=== PATIENT | male | born 1995 | race Caucasian/White ===

== ENCOUNTER 2020-11-10 15:08 | Inpatient (IN) | payer MEDICAID, OTHER ==
[2020-11-10] MEDS ORDERED: LORazepam 2 MG/ML INJ IV STA ×2 (15:40→17:26)
--- NOTE | 2020-11-10 15:49 | ED ---
Psych HPI - General Chief Complaint: Psychiatric Symptoms Stated Complaint: Mental Health Time Seen by Provider: 11/10/20 15:27 Source: patient Mode of arrival: ambulatory - History of Present Illness Initial Comments: Physical 25-year-old male with no known past medical history who presents or urgency department for concerns for change in mental status. Families noted is been more hyperactive and hyperverbal recently. They reported he states he does not have a history of any mental illness. No known history of any drug use except for marijuana. The patient is extremely hyperverbal and tangential and difficult to get a history from. He denies any physical complaints. No suicidal or homicidal ideation. No visual or auditory hallucinations. He denies any drug use. He does state that he drinks around 60 gallons water week and is constantly thirsty. Otherwise he denies any other complaints. No fevers chills, cough, shortness breath, nausea, vomiting, or diarrhea. No other complaints. - Related Data Home Medications Medication Instructions Recorded Confirmed No Known Home Medications 11/10/20 11/10/20 Allergies Allergy/AdvReac Type Severity Reaction Status Date / Time No Known Allergies Allergy Verified 11/10/20 16:43 Review of Systems ROS Statement: Those systems with pertinent positive or pertinent negative responses have been documented in the HPI. ROS Other: All systems not noted in ROS Statement are negative. Past Medical History Past Medical History: No Reported History History of Any Multi-Drug Resistant Organisms: None Reported Past Surgical History: Orthopedic Surgery Additional Past Surgical History / Comment(s): wisdom teeth Past Psychological History: Anxiety Smoking Status: Current some day smoker Past Alcohol Use History: Occasional Past Drug Use History: Marijuana General Exam - General Exam Comments Initial Comments: Constitutional: Awake alert Appears comfortable Head: Normocephalic atraumatic Eyes: no conjunctival injection No scleral icterus EOMI Pupils 4mm Neck: No JVD Supple Heart: Tachycardic but regular normal S1-S2 no murmurs Lungs: Clear to auscultation bilaterally No wheezing No rales Abdomen: Soft nondistended nontender Extremities: Non edematous DP pulses intact Radial pulses intact Neuro: A&Ox3 No focal neurologic deficits Psych: Hyperverbal, tangential, anxious appearing Limitations: no limitations Course Vital Signs 11/10/20 15:15 Temperature 98.5 F Pulse Rate 118 H Respiratory 17 Rate Blood Pressure 129/84 O2 Sat by Pulse 97 Oximetry - Reevaluation(s) Reevaluation #1: EKG showing normal sinus rhythm with a rate of 70. There is no abnormal ST segment changes or T-wave inversion. QTC is 384. Other intervals normal. No ectopy. 11/10/20 15:51 Medical Decision Making - Medical Decision Making Is a 25-year-old male who presents emergency department for hyperactivity and hyperverbal. Patient appear to be manic on examination. He did admit to drinking quite a bit of water some blood work was checked. No hyponatremia. The rest of his blood work was unremarkable. UDS positive for marijuana and tricyclics which I suspect is a cross contaminant however unknown exactly what e lse he could be taking. Patient voluntarily signed in to be treated as inpatient psychiatry. - Lab Data Result diagrams: 11/10/20 15:54 11/10/20 15:54 Lab Results 11/10/20 11/10/20 11/10/20 Range/Units 15:49 15:54 15:54 WBC 7.6 (3.8-10.6) k/uL RBC 5.54 (4.30-5.90) m/uL Hgb 16.3 (13.0-17.5) gm/dL Hct 47.1 (39.0-53.0) % MCV 85.1 (80.0-100.0) fL MCH 29.4 (25.0-35.0) pg MCHC 34.5 (31.0-37.0) g/dL RDW 12.3 (11.5-15.5) % Plt Count 267 (150-450) k/uL MPV 6.6 Neutrophils % 69 % Lymphocytes % 21 % Monocytes % 6 % Eosinophils % 2 % Basophils % 1 % Neutrophils # 5.3 (1.3-7.7) k/uL Lymphocytes # 1.6 (1.0-4.8) k/uL Monocytes # 0.4 (0-1.0) k/uL Eosinophils # 0.1 (0-0.7) k/uL Basophils # 0.1 (0-0.2) k/uL Sodium 143 (137-145) mmol/L Potassium 4.4 (3.5-5.1) mmol/L Chloride 106 (98-107) mmol/L Carbon Dioxide 28 (22-30) mmol/L Anion Gap 9 mmol/L BUN 10 (9-20) mg/dL Creatinine 0.89 (0.66-1.25) mg/dL Est GFR (CKD-EPI)AfAm >90 (>60 ml/min/1.73 sqM) Est GFR (CKD-EPI)NonAf >90 (>60 ml/min/1.73 sqM) Glucose 112 H (74-99) mg/dL Calcium 10.1 (8.4-10.2) mg/dL Urine Color Yellow Urine Appearance Clear (Clear) Urine pH 7.0 (5.0-8.0) Ur Specific [place] 1.015 (1.001-1.035) Urine Protein Trace H (Negative) Urine Glucose (UA) Negative (Negative) Urine Ketones Trace H (Negative) Urine Blood Negative (Negative) Urine Nitrite Negative (Negative) Urine Bilirubin Negative (Negative) Urine Urobilinogen 4.0 (<2.0) mg/dL Ur Leukocyte Esterase Negative (Negative) Salicylates <1.0 mg/dL Urine Opiates Screen Not Detected (NotDetected) Ur Oxycodone Screen Not Detected (NotDetected) Urine Methadone Screen Not Detected (NotDetected) Ur Propoxyphene Screen Not Detected (NotDetected) Acetaminophen <10.0 ug/mL Ur Barbiturates Screen Not Detected (NotDetected) U Tricyclic Antidepress Detected H (NotDetected) Ur Phencyclidine Scrn Not Detected (NotDetected) Ur Amphetamines Screen Not Detected (NotDetected) U Methamphetamines Scrn Not Detected (NotDetected) U Benzodiazepines Scrn Not Detected (NotDetected) Urine Cocaine Screen Not Detected (NotDetected) U Marijuana (THC) Screen Detected H (NotDetected) Serum Alcohol <10 mg/dL Coronavirus (PCR) (Not Detectd) 11/10/20 Range/Units 15:56 WBC (3.8-10.6) k/uL RBC (4.30-5.90) m/uL Hgb (13.0-17.5) gm/dL Hct (39.0-53.0) % MCV (80.0-100.0) fL MCH (25.0-35.0) pg MCHC (31.0-37.0) g/dL RDW (11.5-15.5) % Plt Count (150-450) k/uL MPV Neutrophils % % Lymphocytes % % Monocytes % % Eosinophils % % Basophils % % Neutrophils # (1.3-7.7) k/uL Lymphocytes # (1.0-4.8) k/uL Monocytes # (0-1.0) k/uL Eosinophils # (0-0.7) k/uL Basophils # (0-0.2) k/uL Sodium (137-145) mmol/L Potassium (3.5-5.1) mmol/L Chloride (98-107) mmol/L Carbon Dioxide (22-30) mmol/L Anion Gap mmol/L BUN (9-20) mg/dL Creatinine (0.66-1.25) mg/dL Est GFR (CKD-EPI)AfAm (>60 ml/min/1.73 sqM) Est GFR (CKD-EPI)NonAf (>60 ml/min/1.73 sqM) Glucose (74-99) mg/dL Calcium (8.4-10.2) mg/dL Urine Color Urine Appearance (Clear) Urine pH (5.0-8.0) Ur Specific [place] (1.001-1.035) Urine Protein (Negative) Urine Glucose (UA) (Negative) Urine Ketones (Negative) Urine Blood (Negative) Urine Nitrite (Negative) Urine Bilirubin (Negative) Urine Urobilinogen (<2.0) mg/dL Ur Leukocyte Esterase (Negative) Salicylates mg/dL Urine Opiates Screen (NotDetected) Ur Oxycodone Screen (NotDetected) Urine Methadone Screen (NotDetected) Ur Propoxyphene Screen (NotDetected) Acetaminophen ug/mL Ur Barbiturates Screen (NotDetected) U Tricyclic Antidepress (NotDetected) Ur Phencyclidine Scrn (NotDetected) Ur Amphetamines Screen (NotDetected) U Methamphetamines Scrn (NotDetected) U Benzodiazepines Scrn (NotDetected) Urine Cocaine Screen (NotDetected) U Marijuana (THC) Screen (NotDetected) Serum Alcohol mg/dL Coronavirus (PCR) Not Detected (Not Detectd) Disposition Clinical Impression: Manic behavior Disposition: ADMITTED IP TO THIS [facility] Referrals: Jose,Edgar, DO [Primary Care Provider] - 1-2 days Decision to Admit Reason: Admit from EC
[2020-11-10 15:59] LABS: Appearance,Urine Clear (Clear); Bilirubin,Urine Negative (Negative); Blood,Urine Negative (Negative); Color,Urine Yellow; Glucose,Urine (UA) Negative (Negative); Ketones,Urine Trace (Negative); Leukocyte Esterase,Urine Negative (Negative); Nitrite,Urine Negative (Negative); Protein,Urine Trace (Negative); Specific Gravity,Urine 1.015 (1.001-1.035)
[2020-11-10 16:14] LABS: Amphetamine Screen,Urine Not Detected (NotDetected); Barbiturate Screen,Urine Not Detected (NotDetected); Benzodiazepines Screen,Urine Not Detected (NotDetected); Cocaine Screen,Urine Not Detected (NotDetected); Methadone Screen, Urine Not Detected (NotDetected); Opiate Screen,Urine Not Detected (NotDetected); Oxycodone Screen, Urine Not Detected (NotDetected); Phencyclidine Screen,Urine Not Detected (NotDetected); Tricyclic Antidepressant,Urine Detected (NotDetected); Urn Cannabinoid Scrn Detected (NotDetected)
[2020-11-10 16:16] LABS: Basophils # (A) 0.1 k/uL (0-0.2); Basophils % (A) 1 %; Eosinophils # (A) 0.1 k/uL (0-0.7); Eosinophils % (A) 2 %; HCT 47.1 % (39.0-53.0); HGB 16.3 gm/dL (13.0-17.5); Lymphocytes # (A) 1.6 k/uL (1.0-4.8); Lymphocytes % (A) 21 %; MCH 29.4 pg (25.0-35.0); MCHC 34.5 g/dL (31.0-37.0); MCV 85.1 fL (80.0-100.0); Mean Platelet Volume 6.6; Monocytes # (A) 0.4 k/uL (0-1.0); Monocytes % (A) 6 %; Neutrophils # (A) 5.3 k/uL (1.3-7.7); Neutrophils % (A) 69 %; Platelet Count 267 k/uL (150-450); RBC 5.54 m/uL (4.30-5.90); RDW 12.3 % (11.5-15.5); WBC 7.6 k/uL (3.8-10.6)
[2020-11-10 16:19] LABS: Potassium 4.4 mmol/L (3.5-5.1)
[2020-11-10 16:20] LABS: Acetaminophen <10.0 ug/mL; African American GFR (CKD) >90 (>60 ml/min/1.73 sqM); Alcohol <10 mg/dL; Anion Gap 9 mmol/L; Blood Urea Nitrogen 10 mg/dL (9-20); Calcium 10.1 mg/dL (8.4-10.2); Carbon Dioxide 28 mmol/L (22-30); Chloride 106 mmol/L (98-107); Glucose 112 mg/dL (74-99); Non-African American GFR(CKD) >90 (>60 ml/min/1.73 sqM); Salicylate <1.0 mg/dL; Sodium 143 mmol/L (137-145)
[2020-11-10] MEDS ORDERED: HALOPERIDOL LACTATE 5 MG/ML 1 ML VIAL IM ONE (17:05)
[2020-11-10] MEDS ORDERED: LORazepam 2 MG/ML INJ IM ONE (17:05)
[2020-11-10] MEDS ORDERED: ACETAMINOPHEN TAB 325 MG TAB PO PRN (19:29)
[2020-11-10] MEDS ORDERED: MAG HYDROX/AL HYDROX/SIMETH 30 ML CUP PO PRN (19:29)
[2020-11-10] MEDS ORDERED: LORazepam 1 MG TAB PO PRN (19:29)
[2020-11-10] MEDS ORDERED: LORazepam 2 MG/ML INJ IM PRN (19:33)
[2020-11-10] MEDS ORDERED: HALOPERIDOL LACTATE 5 MG/ML 1 ML VIAL IM PRN (21:35)
[2020-11-10] MEDS ORDERED: HALOPERIDOL LACTATE 5 MG/ML 1 ML VIAL IM SCH (22:00)
[2020-11-11 06:39] LABS: Basophils % (A) 1 %; Eosinophils # (A) 0.2 k/uL (0-0.7); Eosinophils % (A) 3 %; HCT 48.9 % (39.0-53.0); HGB 16.4 gm/dL (13.0-17.5); Lymphocytes # (A) 2.3 k/uL (1.0-4.8); Lymphocytes % (A) 34 %; MCH 28.8 pg (25.0-35.0); MCHC 33.5 g/dL (31.0-37.0); MCV 86.1 fL (80.0-100.0); Mean Platelet Volume 6.7; Monocytes # (A) 0.3 k/uL (0-1.0); Monocytes % (A) 5 %; Neutrophils # (A) 3.9 k/uL (1.3-7.7); Neutrophils % (A) 56 %; Platelet Count 265 k/uL (150-450); RBC 5.68 m/uL (4.30-5.90); RDW 12.4 % (11.5-15.5)
[2020-11-11 06:46] LABS: ALT 24 U/L (4-49); AST 25 U/L (17-59); African American GFR (CKD) >90 (>60 ml/min/1.73 sqM); Albumin 4.9 g/dL (3.5-5.0); Alkaline Phosphatase 63 U/L (38-126); Anion Gap 6 mmol/L; Blood Urea Nitrogen 13 mg/dL (9-20); Calcium 9.8 mg/dL (8.4-10.2); Carbon Dioxide 30 mmol/L (22-30); Chloride 103 mmol/L (98-107); Cholesterol 104 mg/dL (<200); Glucose 93 mg/dL (74-99); HDL Cholesterol 41 mg/dL (40-60); LDL Cholesterol,Calculated 53 mg/dL (0-99); Non-African American GFR(CKD) >90 (>60 ml/min/1.73 sqM); Potassium 4.3 mmol/L (3.5-5.1); Sodium 139 mmol/L (137-145); Total Bilirubin 0.5 mg/dL (0.2-1.3); Total Protein 7.4 g/dL (6.3-8.2); Triglycerides 49 mg/dL (<150)
--- NOTE | 2020-11-11 12:02 | P.HP ---
Psychiatric H&P - . H&P Date: 11/11/20 History & Physical: Allergies Allergy/AdvReac Type Severity Reaction Status Date / Time No Known Allergies Allergy Verified 11/10/20 16:43 Vital Signs Temp 96.0 F L 11/11/20 06:12 Pulse 94 11/11/20 06:12 Resp 18 11/11/20 06:12 BP 110/68 11/11/20 06:12 Pulse Ox 97 11/10/20 20:38 Intake & Output 11/10/20 11/11/20 11/11/20 18:59 06:59 18:59 Weight 94.347 kg Laboratory Last Values WBC 7.0 k/uL (3.8-10.6) 11/11/20 05:45 RBC 5.68 m/uL (4.30-5.90) 11/11/20 05:45 Hgb 16.4 gm/dL (13.0-17.5) 11/11/20 05:45 Hct 48.9 % (39.0-53.0) 11/11/20 05:45 MCV 86.1 fL (80.0-100.0) 11/11/20 05:45 MCH 28.8 pg (25.0-35.0) 11/11/20 05:45 MCHC 33.5 g/dL (31.0-37.0) 11/11/20 05:45 RDW 12.4 % (11.5-15.5) 11/11/20 05:45 Plt Count 265 k/uL (150-450) 11/11/20 05:45 MPV 6.7 11/11/20 05:45 Neutrophils % 56 % 11/11/20 05:45 Lymphocytes % 34 % 11/11/20 05:45 Monocytes % 5 % 11/11/20 05:45 Eosinophils % 3 % 11/11/20 05:45 Basophils % 1 % 11/11/20 05:45 Neutrophils # 3.9 k/uL (1.3-7.7) 11/11/20 05:45 Lymphocytes # 2.3 k/uL (1.0-4.8) 11/11/20 05:45 Monocytes # 0.3 k/uL (0-1.0) 11/11/20 05:45 Eosinophils # 0.2 k/uL (0-0.7) 11/11/20 05:45 Basophils # 0.0 k/uL (0-0.2) 11/11/20 05:45 Sodium 139 mmol/L (137-145) 11/11/20 05:45 Potassium 4.3 mmol/L (3.5-5.1) 11/11/20 05:45 Chloride 103 mmol/L (98-107) 11/11/20 05:45 Carbon Dioxide 30 mmol/L (22-30) 11/11/20 05:45 Anion Gap 6 mmol/L 11/11/20 05:45 BUN 13 mg/dL (9-20) 11/11/20 05:45 Creatinine 0.72 mg/dL (0.66-1.25) 11/11/20 05:45 Est GFR (CKD-EPI)AfAm >90 (>60 ml/min/1.73 sqM) 11/11/20 05:45 Est GFR (CKD-EPI)NonAf >90 (>60 ml/min/1.73 sqM) 11/11/20 05:45 Glucose 93 mg/dL (74-99) 11/11/20 05:45 Calcium 9.8 mg/dL (8.4-10.2) 11/11/20 05:45 Total Bilirubin 0.5 mg/dL (0.2-1.3) 11/11/20 05:45 AST 25 U/L (17-59) 11/11/20 05:45 ALT 24 U/L (4-49) 11/11/20 05:45 Alkaline Phosphatase 63 U/L (38-126) 11/11/20 05:45 Total Protein 7.4 g/dL (6.3-8.2) 11/11/20 05:45 Albumin 4.9 g/dL (3.5-5.0) 11/11/20 05:45 Triglycerides 49 mg/dL (<150) 11/11/20 05:45 Cholesterol 104 mg/dL (<200) 11/11/20 05:45 LDL Cholesterol, Calc 53 mg/dL (0-99) 11/11/20 05:45 HDL Cholesterol 41 mg/dL (40-60) 11/11/20 05:45 TSH 2.730 mIU/L (0.465-4.680) 11/11/20 05:45 Urine Color Yellow 11/10/20 15:49 Urine Appearance Clear (Clear) 11/10/20 15:49 Urine pH 7.0 (5.0-8.0) 11/10/20 15:49 Ur Specific [place] 1.015 (1.001-1.035) 11/10/20 15:49 Urine Protein Trace (Negative) H 11/10/20 15:49 Urine Glucose (UA) Negative (Negative) 11/10/20 15:49 Urine Ketones Trace (Negative) H 11/10/20 15:49 Urine Blood Negative (Negative) 11/10/20 15:49 Urine Nitrite Negative (Negative) 11/10/20 15:49 Urine Bilirubin Negative (Negative) 11/10/20 15:49 Urine Urobilinogen 4.0 mg/dL (<2.0) 11/10/20 15:49 Ur Leukocyte Esterase Negative (Negative) 11/10/20 15:49 Salicylates <1.0 mg/dL 11/10/20 15:54 Urine Opiates Screen Not Detected (NotDetected) 11/10/20 15:49 Ur Oxycodone Screen Not Detected (NotDetected) 11/10/20 15:49 Urine Methadone Screen Not Detected (NotDetected) 11/10/20 15:49 Ur Propoxyphene Screen Not Detected (NotDetected) 11/10/20 15:49 Acetaminophen <10.0 ug/mL 11/10/20 15:54 Ur Barbiturates Screen Not Detected (NotDetected) 11/10/20 15:49 U Tricyclic Antidepress Detected (NotDetected) H 11/10/20 15:49 Ur Phencyclidine Scrn Not Detected (NotDetected) 11/10/20 15:49 Ur Amphetamines Screen Not Detected (NotDetected) 11/10/20 15:49 U Methamphetamines Scrn Not Detected (NotDetected) 11/10/20 15:49 U Benzodiazepines Scrn Not Detected (NotDetected) 11/10/20 15:49 Urine Cocaine Screen Not Detected (NotDetected) 11/10/20 15:49 U Marijuana (THC) Screen Detected (NotDetected) H 11/10/20 15:49 Serum Alcohol <10 mg/dL 11/10/20 15:54 Coronavirus (PCR) Not Detected (Not Detectd) 11/10/20 15:56 11/11/20 11:33 IDENTIFYING DATA: Patient is a single, employed, 25-year-old male with no significant medical history who was admitted for being more hyperactive and hyperverbal. HPI: Patient presented to the hospital on 11/10/2020 after suggestion from the patient's family and girlfriend that he be evaluated for mental illness. As per concerns for the patient's family and girlfriend, the patient has been more elevated and not acting quite like himself. The patient signed a release of information for his girlfriend Danna Borja. Patient's girlfriend reports that the patient has been "not acting quite himself." She states that he has been not sleeping over the past few days and that he has been increasingly stressed out, disorganized, and "all over the place." She does express concern because the patient also disappeared for 2 days when he went to [place] with a friend. The patient and girlfriend endorse significant symptoms of papi including increased goal-directed behavior, increased energy, pressured speech, impulsive spending, and mood lability. There is also some concern from the patient's family that he has "delusions of grandeur" but the patient and girlfriend states that these goals and aspirations are attainable and not delusions. The patient expresses a strong desire to become a rapper or at least contribute his music to rappers in the [place] area. In regards to depression, the patient is not endorsing any significant history. He is not reporting any hopelessness, helplessness, anhedonia, low energy, or changes in appetite. He vehemently denies any suicidal or homicidal ideation, intention, and/or plan. He denies any prior attempts at suicide. He does admit that he has access to firearms that are currently locked up in his home. Patient is not endorsing any auditory or visual hallucinations. She is denying any paranoia or other delusions. He reports no significant history of trauma. He denies any physical, sexual, or emotional abuse history. PAST PSYCHIATRIC HISTORY: Patient states that he has not been diagnosed with any mental illness in the past. Patient denies being on any psychiatric medications. Patient denies any previous psychiatric hospitalizations. Patient denies any psychiatric outpatient follow-up. Patient denies any history of suicide attempts in the past. PMH: No reported medical history ALLERGIES: NO KNOWN DRUG ALLERGIES CHEMICAL DEPENDENCY HISTORY: Patient admits to occasional marijuana use. He does report occasional alcohol use. He reports drinking 3-5 drinks in 1 sitting when he does go out to drink. He states this occurs at most on a monthly basis. He admits to vaping. He reports no illicit drug use. FAMILY PSYCHIATRIC/SUBSTANCE USE HISTORY: The patient reports that his maternal grandmother may have had the diagnosis of bipolar/schizophrenia. He states that there is mental illness in his family but is unable to identify any specific diagnoses. SOCIAL HISTORY: Patient was born and raised in [place]. He currently lives with his aunt in [place], [place]. He does occasionally stay with his girlfriend Danna Borja with whom he has been with for 1 year. Danna 16-year-old daughter is also present in the home. 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 He denies any significant legal issues or history. He reports some college education. MENTAL STATUS EXAM: General Appearance: Patient appears to be stated age is alert, directable, and attempts to cooperate. Patient appears to have fair hygiene and grooming. Patient has multiple tattoos on bilateral forearms. Behavior: Patient is seated without any agitated behavior. Psychomotor activity slightly elevated. Speech: Patient's speech is pressured, hyperverbal. Mood/Affect: Patient reports their mood is doing fine, affect is euphoric and expansive in range. Suicidality/Homicidality: Patient vehemently denies any suicidal or homicidal ideation, intention, and/or plan. Perceptions: Patient denies any auditory or visual hallucinations. Though content/process: Flight of ideas are present. Some grandiose delusional content is endorsed. Tangential. Memory and concentration: AOX3, grossly intact for the purposes of this session. Can spell "WORLD" backwards Judgment and insight: Fair STRENGTHS/WEAKNESSES: Strength is that the patient has stable housing, employment, and a supportive family. Weakness is that patient engages in marijuana use. INTELLECT: average IMPRESSIONS: Bipolar disorder, type I, current episode manic Cannabis use disorder PLAN: -Patient is admitted under voluntary status to U for stabilization of psychiatric symptoms and safety. Patient signed adult voluntary form and medication consent and is placed in patient's chart. -Medications : Will start patient on [employer] 300 mg by mouth 3 times a day for mood stabilization Seroquel 50 mg by mouth at bedtime when stabilization -Ativan and Haldol PRN for agitation/aggression -Patient was counselled on substance abuse and desired to cut back on use -Patient was informed of the risks, benefits and side effects of the medication and patient verbally consented to taking the medications. Patient signed med consent form and was placed in chart. -Internal Medicine consult to perform medical evaluation and physical. -SW on board for discharge planning. Encourage patient to participate in groups to work on coping skills.
[2020-11-11 15:02] LABS: Hemoglobin A1C 5.1 % (4.0-6.0)
[2020-11-11] MEDS: LITHIUM CARBONATE 300 MG CAP PO SCH ×2 (15:44→21:32)
--- NOTE | 2020-11-11 16:43 | P.CONS ---
History of Present Illness - Reason for Consult Medical clearance - History of Present Illness Patient is an 25-year-old male was admitted for Bipolar disorder and episodes of papi. Patient did is a very pleasant gentleman but still has a pressured speech and symptoms of papi. Patient denied any fever chills nausea vomiting abdominal pain dysuria. Patient does smoke occasionally does use marijuana. Review of Systems REVIEW OF SYSTEMS: CONSTITUTIONAL: No fever, no malaise, no fatigue. HEENT: No recent visual problems or hearing problems. Denied any sore throat. CARDIOVASCULAR: No chest pain, orthopnea, PND, no palpitations, no syncope. PULMONARY: No shortness of breath, no cough, no hemoptysis. GASTROINTESTINAL: No diarrhea, no nausea, no vomiting, no abdominal pain. NEUROLOGICAL: No headaches, no weakness, no numbness. HEMATOLOGICAL: Denies any bleeding or petechiae. GENITOURINARY: Denies any burning micturition, frequency, or urgency. MUSCULOSKELETAL/RHEUMATOLOGICAL: Denies any joint pain, swelling, or any muscle pain. ENDOCRINE: Denies any polyuria or polydipsia. The rest of the 14-point review of systems is negative. Past Medical History Past Medical History: No Reported History History of Any Multi-Drug Resistant Organisms: None Reported Past Surgical History: Orthopedic Surgery Additional Past Surgical History / Comment(s): wisdom teeth Past Psychological History: Anxiety Smoking Status: Current some day smoker Past Alcohol Use History: Occasional Past Drug Use History: Marijuana Medications and Allergies Home Medications Medication Instructions Recorded Confirmed Type No Known Home Medications 11/10/20 11/10/20 History Allergies Allergy/AdvReac Type Severity Reaction Status Date / Time No Known Allergies Allergy Verified 11/10/20 16:43 Physical Exam Vitals: Vital Signs Temp Pulse Pulse Resp BP BP Pulse Ox 11/11/20 06:12 96.0 F L 94 18 110/68 11/10/20 20:38 98.7 F 96 18 132/76 97 11/10/20 19:11 97.7 F 105 H 17 128/88 96 11/10/20 19:02 16 11/10/20 17:32 98.4 F 102 H 18 124/87 95 PHYSICAL EXAMINATION: GENERAL: The patient is alert and oriented x3, not in any acute distress. Well developed, well nourished. HEENT: Pupils are round and equally reacting to light. EOMI. No scleral icterus. No conjunctival pallor. Normocephalic, atraumatic. No pharyngeal erythema. No thyromegaly. CARDIOVASCULAR: S1 and S2 present. No murmurs, rubs, or gallops. PULMONARY: Chest is clear to auscultation, no wheezing or crackles. ABDOMEN: Soft, nontender, nondistended, normoactive bowel sounds. No palpable organomegaly. MUSCULOSKELETAL: No joint swelling or deformity. EXTREMITIES: No cyanosis, clubbing, or pedal edema. NEUROLOGICAL: Gross neurological examination did not reveal any focal deficits. SKIN: No rashes. Results CBC & Chem 7: 11/11/20 05:45 11/11/20 05:45 Assessment and Plan Plan: -Bipolar disorder with acute manic episodes patient is presently on lithium bicarbonate Seroquel and Haldol. -Nicotine use and marijuana use: Counseling was provided No further recommendations from medicine perspective.
[2020-11-11 16:49] LABS: Appearance,Urine Clear (Clear); Bilirubin,Urine Negative (Negative); Blood,Urine Negative (Negative); Color,Urine Colorless; Glucose,Urine (UA) Negative (Negative); Ketones,Urine Negative (Negative); Leukocyte Esterase,Urine Negative (Negative); Nitrite,Urine Negative (Negative); Protein,Urine Negative (Negative); Specific Gravity,Urine 1.001 (1.001-1.035); Urobilinogen,Urine <2.0 mg/dL (<2.0)
[2020-11-11] MEDS ORDERED: QUEtiapine 100 MG TAB PO SCH (21:00)
[2020-11-11] MEDS ORDERED: QUEtiapine 50 MG TAB PO SCH (21:00)
[2020-11-12 01:06] LABS: Urine Alcohol Negative (Negative); Urine Barbiturate Negative (Negative); Urine Cocaine Negative (Negative); Urine Methadone Negative (Negative); Urine Opiates Negative (Negative); Urine Phencyclidine Negative (Negative)
[2020-11-12 06:59] VITALS: RESP 16
[2020-11-12] MEDS: LITHIUM CARBONATE 300 MG CAP PO SCH ×3 (07:58→20:56)
--- NOTE | 2020-11-12 10:24 | P.PN ---
Progress Note - Text Progress Note Date: 11/12/20 Interval History: Patient was seen wandering the hallways and was directable and agreeable to speak with film writer in the office. Patient stresses a strong desire for discharge. He states that he is feeling like he is back to his normal self. He reports that he was talking to his girlfriend and his family and they also report that he is more back to his normal self. The patient was informed that he continues to display some manic symptoms and that his medications are curr ently under dosed. The patient expresses some frustration believing that he has had an extended stay despite being only on the psychiatric unit for 2 nights. He is currently not reporting any suicidal or homicidal ideation, intention, and/or plan. He is not reporting any auditory or visual hallucinations. He denied any paranoia or delusions. He continues to be somewhat tangential, with pressured speech, and endorses some grandiosity. Patient does report sleeping well. Mental Status Exam: General Appearance: Patient appears to be stated age is alert, directable, and cooperative. Patient has multiple tattoos on his bilateral forearms. Behavior: Patient is calmly seated without any agitated behavior. Psychomotor activity is elevated. Speech: Patient's speech is pressured, hyperverbal, tangential. Mood/Affect: Mood is euphoric to irritable, somewhat labile. Affect is expansive in range. Suicidality/Homicidality: Patient reports no suicidal or homicidal ideation, intention, and/or plan. Perceptions: Patient is not endorsing any auditory or visual hallucinations. Though content/process: Flight of ideas continued to present. Some grandiosity. Tangential. Memory and concentration: AOX3, grossly intact for the purposes of this session Judgment and insight: Poor Assessment Bipolar disorder, type I, current episode manic Cannabis use disorder Plan: -Patient continues to meet criteria for inpatient psychiatric admission for symptom stabilization and safety. Patient has signed adult voluntary form and medication consent and was placed in patient's chart. Patient plans to sign himself out voluntarily. -Medications: -Continue lithium 300 mg by mouth 3 times a day for mood stabilization - [place] level ordered for tomorrow. -Increase Seroquel to 100 mg by mouth at bedtime for mood stabilization -When necessary Ativan and Haldol for agitation/aggression. -SW on board for discharge planning. Encouraged the patient to participate in milieu.
[2020-11-12] MEDS ORDERED: QUEtiapine 100 MG TAB PO SCH (21:00)
[2020-11-13 07:06] VITALS: BP 128/77; PULSE 89; TEMP 98
[2020-11-13] MEDS: LITHIUM CARBONATE 300 MG CAP PO SCH (07:51)
--- NOTE | 2020-11-13 10:45 | P.DS ---
Providers Date of admission: 11/10/20 19:17 Expected date of discharge: 11/13/20 Attending physician: Akira Lin MD Consults: 11/10/20 19:29 Consult Physician Routine Consulting Provider: Edgar Garcia Consult Reason/Comments: medical management Do you want consulting provider notified?: Already Contacted Primary care physician: Edgar Garcia - Discharge Diagnosis(es) (1) Bipolar 1 disorder Current Visit: Yes Status: Acute Priority: High (2) Cannabis abuse Current Visit: Yes Status: Chronic Priority: Medium Hospital Course: Admission HPI: Patient is a single, employed, 25-year-old male with no significant medical history who was admitted for being more hyperactive and hyperverbal. Patient presented to the hospital on 11/10/2020 after suggestion from the patient's family and girlfriend that he be evaluated for mental illness. As per concerns for the patient's family and girlfriend, the patient has been more elevated and not acting quite like himself. The patient signed a release of information for his girlfriend Danna Borja. Patient's girlfriend reports that the patient has been "not acting quite himself." She states that he has been not sleeping over the past few days and that he has been increasingly stressed out, disorganized, and "all over the place." She does express concern because the patient also disappeared for 2 days when he went to [place] with a friend. The patient and girlfriend endorse significant symptoms of papi including increased goal-directed behavior, increased energy, pressured speech, impulsive spending, and mood lability. There is also some concern from the patient's family that he has "delusions of grandeur" but the patient and girlfriend states that these goals and aspirations are attainable and not delusions. The patient expresses a strong desire to become a rapper or at least contribute his music to rappers in the [place] area. In regards to depression, the patient is not endorsing any significant history. He is not reporting any hopelessness, helplessness, anhedonia, low energy, or changes in appetite. He vehemently denies any suicidal or homicidal ideation, intention, and/or plan. He denies any prior attempts at suicide. He does admit that he has access to firearms that are currently locked up in his home. Patient is not endorsing any auditory or visual hallucinations. She is denying any paranoia or other delusions. He reports no significant history of trauma. He denies any physical, sexual, or emotional abuse history. Hospital course: Upon admission to the unit patient was initially presenting with significant manic symptoms including pressured speech, tangentiality, and impulsive behavior. However, the patient was agreeable and directable to commence treatment. The patient was started on lithium and Seroquel for management of papi. A phone call took place with the patient's girlfriend and the patient who confirmed that the patient has been expressing significant symptoms of papi. The patient signed voluntarily onto the unit. The following day, the patient expressed a strong desire for discharge was informed that he is not receiving an adequate dose of his medication that he continues to exhibit significant symptoms of papi. The patient filed a 72 hour notice. The patient's Seroquel was increased. On the day of discharge, the patient is calm and cooperative. His speech is less pressured. He has been adherent with his medications and is not reporting any somatic and side effects. His lithium level was noted to be 0.3. He is vehemently denying any suicidal or homicidal ideation, intention, and/or plan. He reports access to firearms but states that he will get a family member to keep him locked up. He will be staying with his girlfriend. He is not reporting any auditory or visual hallucinations. He denies any paranoia or delusions. Patient was counseled on following up with his outpatient providers for his mental health as well as his general health. The patient was counseled on substance abuse and stopping the use of cannabis as it may contribute to his mental health problems. Prior to discharge, family me eting will take place between the patient's family and social work to determine safety. Mental status exam: General Appearance: Patient appears to be stated age is alert, pleasant, and cooperative. Patient is in no acute distress and has fair hygiene and grooming patient has multiple tattoos on his bilateral forearms. Behavior: Patient is calmly seated without any agitated behavior. Speech: Patient's speech is fluent and nonpressured. Normal in volume. Much more interruptible than before. Mood/Affect: Patient reports their mood is "feeling really good", affect is congruent and euthymic. Suicidality/Homicidality: Patient denies having any suicidal or homicidal ideation intent or plan. Perceptions: Patient denies any auditory or visual hallucinations. Though content/process: There is no evidence of any delusional thought content and thought process is linear and goal-directed. Patient is future oriented. Memory and concentration: AOX3, grossly intact for the purposes of this session. Can spell "WORLD" backwards correctly. Judgment and insight: Improved Impression: Bipolar disorder, type I, an episode manic Cannabis use disorder Plan: -Continue with discharge today as patient has improved and stabilized psychiatrically and is not currently an imminent threat to himself and/or others. Patient will remain at chronically elevated risk for harm to self and/or others due to his impulsivity and substance abuse. -Continue medications: [place] 300 mg by mouth 3 times a day for mood stabilization Seroquel 100 mg by mouth at bedtime for mood stabilization stabilization -Patient was counseled on the need for medication compliance and appropriate follow-up at mental health and also primary care for medical issues. Patient verbalized understanding and agreed. -Social work to arrange for and conduct family meeting to ensure safety upon discharge and answer any questions/concerns. Social work also to arrange for patients follow up appointments for psychiatric care along with follow up with primary care provider. -Patient counseled on abstaining from recreational drugs and marijuana and alcohol. Was informed/educated on the adverse effects on their physical and men [place] health. Patient verbally agreed and understood. Patient was offered substance abuse treatment however declined at this time. -Patient was instructed to return to the hospital or seek immediate medical care if their psychiatric or medical symptoms do worsen or reoccur. -Psychoeducation and supportive therapy provided to patient. Risks and benefits of pharmacological treatment versus the risks and benefits of nontreatment weight and discussed. Informed consent discussion held. Common side effects of psychotropics discussed such as, but not limited to headache, GI disturbance, sexual dysfunction, movement disorders, sedation, and orthostatic hypotension. Life threatening and blackbox warnings of prescribed medications also discussed. Potential risks of operating a vehicle or heavy machinery discussed with patient at length. Advised on importance of compliance and a reliable and responsible manner. Patient advised to review FDA consumer labeling of all medications prior to taking. Patient verbalized understanding of potential risks, and agrees with current treatment plan. Patient advised to medically contact physician/emergency personnel if any acute changes in condition occur. Vital Signs Temp 98 F 11/13/20 06:59 Pulse 89 11/13/20 06:59 Resp 16 11/13/20 06:59 BP 128/77 11/13/20 06:59 Pulse Ox 97 11/12/20 06:00 Laboratory Results WBC 7.0 k/uL (3.8-10.6) 11/11/20 05:45 RBC 5.68 m/uL (4.30-5.90) 11/11/20 05:45 Hgb 16.4 gm/dL (13.0-17.5) 11/11/20 05:45 Hct 48.9 % (39.0-53.0) 11/11/20 05:45 MCV 86.1 fL (80.0-100.0) 11/11/20 05:45 MCH 28.8 pg (25.0-35.0) 11/11/20 05:45 MCHC 33.5 g/dL (31.0-37.0) 11/11/20 05:45 RDW 12.4 % (11.5-15.5) 11/11/20 05:45 Plt Count 265 k/uL (150-450) 11/11/20 05:45 MPV 6.7 11/11/20 05:45 Neutrophils % 56 % 11/11/20 05:45 Lymphocytes % 34 % 11/11/20 05:45 Monocytes % 5 % 11/11/20 05:45 Eosinophils % 3 % 11/11/20 05:45 Basophils % 1 % 11/11/20 05:45 Neutrophils # 3.9 k/uL (1.3-7.7) 11/11/20 05:45 Lymphocytes # 2.3 k/uL (1.0-4.8) 11/11/20 05:45 Monocytes # 0.3 k/uL (0-1.0) 11/11/20 05:45 Eosinophils # 0.2 k/uL (0-0.7) 11/11/20 05:45 Basophils # 0.0 k/uL (0-0.2) 11/11/20 05:45 Sodium 139 mmol/L (137-145) 11/11/20 05:45 Potassium 4.3 mmol/L (3.5-5.1) 11/11/20 05:45 Chloride 103 mmol/L (98-107) 11/11/20 05:45 Carbon Dioxide 30 mmol/L (22-30) 11/11/20 05:45 Anion Gap 6 mmol/L 11/11/20 05:45 BUN 13 mg/dL (9-20) 11/11/20 05:45 Creatinine 0.72 mg/dL (0.66-1.25) 11/11/20 05:45 Est GFR (CKD-EPI)AfAm >90 (>60 ml/min/1.73 sqM) 11/11/20 05:45 Est GFR (CKD-EPI)NonAf >90 (>60 ml/min/1.73 sqM) 11/11/20 05:45 Glucose 93 mg/dL (74-99) 11/11/20 05:[address] Glu mg/dL 100 11/11/20 05:45 Hemoglobin A1c 5.1 % (4.0-6.0) 11/11/20 05:45 Calcium 9.8 mg/dL (8.4-10.2) 11/11/20 05:45 Total Bilirubin 0.5 mg/dL (0.2-1.3) 11/11/20 05:45 AST 25 U/L (17-59) 11/11/20 05:45 ALT 24 U/L (4-49) 11/11/20 05:45 Alkaline Phosphatase 63 U/L (38-126) 11/11/20 05:45 Total Protein 7.4 g/dL (6.3-8.2) 11/11/20 05:45 Albumin 4.9 g/dL (3.5-5.0) 11/11/20 05:45 Triglycerides 49 mg/dL (<150) 11/11/20 05:45 Cholesterol 104 mg/dL (<200) 11/11/20 05:45 LDL Cholesterol, Calc 53 mg/dL (0-99) 11/11/20 05:45 HDL Cholesterol 41 mg/dL (40-60) 11/11/20 05:45 TSH 2.730 mIU/L (0.465-4.680) 11/11/20 05:45 Urine Color Colorless 11/11/20 16:31 Urine Appearance Clear (Clear) 11/11/20 16:31 Urine pH 7.0 (5.0-8.0) 11/11/20 16:31 Ur Specific [place] 1.001 (1.001-1.035) 11/11/20 16:31 Urine Protein Negative (Negative) 11/11/20 16:31 Urine Glucose (UA) Negative (Negative) 11/11/20 16:31 Urine Ketones Negative (Negative) 11/11/20 16:31 Urine Blood Negative (Negative) 11/11/20 16:31 Urine Nitrite Negative (Negative) 11/11/20 16:31 Urine Bilirubin Negative (Negative) 11/11/20 16:31 Urine Urobilinogen <2.0 mg/dL (<2.0) 11/11/20 16:31 Ur Leukocyte Esterase Negative (Negative) 11/11/20 16:31 Salicylates <1.0 mg/dL 11/10/20 15:54 Urine Opiates Screen Negative ng/mL (Negative) 11/11/20 16:31 Ur Oxycodone Screen Not Detected (NotDetected) 11/10/20 15:49 Urine Methadone Screen Negative ng/mL (Negative) 11/11/20 16:31 Ur Propoxyphene Screen Negative ng/mL (Negative) 11/11/20 16:31 Acetaminophen <10.0 ug/mL 11/10/20 15:54 Ur Barbiturates Screen Not Detected (NotDetected) 11/10/20 15:49 Urine Barbiturates Negative ng/mL (Negative) 11/11/20 16:31 U Tricyclic Antidepress Detected (NotDetected) H 11/10/20 15:49 Ur Phencyclidine Scrn Negative ng/mL (Negative) 11/11/20 16:31 Ur Amphetamine Screen Negative ng/mL (Negative) 11/11/20 16:31 Ur Amphetamines Screen Not Detected (NotDetected) 11/10/20 15:49 U Methamphetamines Scrn Not Detected (NotDetected) 11/10/20 15:49 U Benzodiazepines Scrn Negative ng/mL (Negative) 11/11/20 16:31 [place] 0.3 mmol/L 11/13/20 07:45 Urine Cocaine Screen Negative ng/mL (Negative) 11/11/20 16:31 U Cannabinoids Screen Negative ng/mL (Negative) 11/11/20 16:31 U Marijuana (THC) Screen Detected (NotDetected) H 11/10/20 15:49 Urine Alcohol Negative mg/dL (Negative) 11/11/20 16:31 Serum Alcohol <10 mg/dL 11/10/20 15:54 Coronavirus (PCR) Not Detected (Not Detectd) 11/10/20 15:56 Allergies Allergy/AdvReac Type Severity Reaction Status Date / Time No Known Allergies Allergy Verified 11/10/20 16:43 Patient Condition at Discharge: Stable Plan - Discharge Summary Discharge Rx Participant: Yes New Discharge Prescriptions: New [place] Carbonate 300 mg PO TID 30 Days cap QUEtiapine [SEROquel] 100 mg PO HS 30 Days tab Discharge Medication List [place] Carbonate 300 mg PO TID 30 Days cap 11/13/20 [Rx] QUEtiapine [SEROquel] 100 mg PO HS 30 Days tab 11/13/20 [Rx] Follow up Appointment(s)/Referral(s): Edgar Garcia DO [Primary Care Provider] - 1-2 days Activity/Diet/Wound Care/Special Instructions: Activity and diet as tolerated. Avoid the use of street drugs and alcohol. Take all medications as prescribed. When you are in need of refills on your medications please contact your medical provider and/or outpatient psychiatrist to have this done. Please go to scheduled outpatient appointment for aftercare treatment. If symptoms return or become worse, call the crisis line at and/or go to the nearest emergency room for evaluation. Discharge Disposition: HOME SELF-CARE
== END 2020-11-13 12:22 | disposition home or self-care (01) | DRG 885 ==
LOC: EC 15:08 → 3MHU 19:17
PROVIDERS: ADMIT Psychiatry & Neurology Psychiatry; ATTEND Psychiatry & Neurology Psychiatry
DX: F31.10 Bipolar disorder, current episode manic without psychotic features, unspecified (principal); F12.10 Cannabis abuse, uncomplicated; F41.9 Anxiety disorder, unspecified; F17.200 Nicotine dependence, unspecified, uncomplicated; Z20.822 Contact with and (suspected) exposure to COVID-19; R45.87 Impulsiveness; Z81.8 Family history of other mental and behavioral disorders
CPT/HCPCS: 36415; 80048; 80053; 80061; 80143; 80178; 80306; 80320; 81003; 82075; 83036; 83520; 84443; 85025; 87635; 93005; 96372; 96374; 96376; 99285